=== PATIENT | male | born 1960 | race Caucasian/White ===

== ENCOUNTER 2025-06-21 23:15 | Emergency (ER) | payer SELFPAY ==
[2025-06-21 23:27] VITALS: BP 185/118
--- NOTE | 2025-06-22 00:07 | ED.GENMED ---
History of Present Illness
General
Chief Complaint: Crisis Evaluation
Source: patient
Exam Limitations: none
Time Seen by Provider: 06/22/25 00:07
Nursing documentation reviewed up to this point in time: agreed with
History of Present Illness
History of Present Illness:
64 yo male w h/o HTN, HLD, GERD, NIDDM, Depression presents stating he had a disagreement with his long time girlfriend, accused her of having affair, 'everyone thinks I'm lying,' 'I threatened her I would leave her,' 'I went to work and thought I
was going to be fired,' 'my girlfriend called my son and he doesn't believe me, he thinks I'm delusional.' 'Weird things are happening at work' 'my girlfriend doesn't want anyone to know we've been having a rn long term care affair...' Rambling on and on
jumping from subject to subject. Denies SI or HI. States his boss told him 'your spiralling'
He mentions an officer was at the scene and his son drove him here.
He denies any medical symptoms.
He is reporting concerns of being perceived as having a psychotic break.
Past History
Past History
ED Past Medical History: GERD, HTN, Hypercholesterolemia, NIDDM and Psychiatric (depression)
Social History
Tobacco: Former smoker
Alcohol: None
Employment: Employed
Review of Systems
Review of Systems
Allergies reviewed?: Yes
All Other Systems: ROS reviewed and negative except as documented in HPI and ROS
Constitutional: Denies fever
Respiratory: Denies trouble breathing
Cardiac: Denies chest pain
ABD/GI: Denies abdominal pain, nausea, vomiting or diarrhea
: Denies difficulty voiding
Musculoskeletal: Reports no symptoms
Skin: Reports no symptoms
Neurological: Reports no symptoms
Psychiatric: Reports depression and other (Paranoia); Denies suicidal
Phy Exam
Physical Exam
Physical Exam:
GENERAL: No acute distress. A&Ox3.
CONSTITUTIONAL: Afebrile.
EYES: clear, conjunctivae normal
ENMT: moist mucus membranes, Pharynx nl
RESPIRATORY: Regular respirations, nonlabored, lungs clear.
CARDIOVASCULAR: Regular rate and rhythm, no murmurs, no rubs.
GI: Soft, nontender, normal BS
MUSCULOSKELETAL: Moves with ease. Well perfused.
SKIN: Warm, dry, pink
PSYCH: Normal mood and affect. Well kept, interactive and appropriate
NEUROLOGIC: Awake, alert and oriented. No focal neurological deficits
Course
Orders/Labs/Results
Orders:
Orders
06/22/25 00:04
Crisis Consult Urgent
Reason for Consult: depression
Vital Signs
Initial and Last Documented VS:
Initial Vital Signs
Temp Pulse Resp BP Pulse Ox
98.9 F 108 20 185/118 98
06/21/25 23:27 06/21/25 23:27 06/21/25 23:27 06/21/25 23:27 06/21/25 23:27
Last Documented Vital Signs
Temp Pulse Resp BP Pulse Ox
98.9 F 94 18 155/76 96
06/21/25 23:27 06/22/25 02:34 06/22/25 02:34 06/22/25 02:34 06/22/25 02:34
MDM/Problems Addressed
MDM/Problems Addressed:
64 yo male w h/o HTN, HLD, GERD, NIDDM, Depression presents stating he had a disagreement with his long time girlfriend, accused her of having affair, 'everyone thinks I'm lying,' 'I threatened her I would leave her,' 'I went to work and thought I
was going to be fired,' 'my girlfriend called my son and he doesn't believe me, he thinks I'm delusional.' 'Weird things are happening at work' 'my girlfriend doesn't want anyone to know we've been having a long-term affair...' Rambling on and on
jumping from subject to subject. Denies SI or HI. States his boss told him 'your spiralling'
He mentions an officer was at the scene and his son drove him here.
He denies any medical symptoms.
He is reporting concerns of being perceived as having a psychotic break.
Crisis consulted.
Ata from Crisis in, states pt is manic but low risk. He is not suicidal or homicidal, no history of attempts at suicide or self-harm. He has a therapy appointment later today and a psychiatrist appointment Tuesday.
2:30 a.m.
Pt remains calm, pleasant
He is comfortable calling his son to come pick him up.
*Pulse Oximetry
SaO2: 98
Oxygen Mode of Delivery: Room air
Patient hypoxic: not evaluated
*Critical Care Note
Total Time (30-74mins, 75-104mins- exclusive of procedures): Not Applicable
ED Attending Note
-
Portions of this chart may have been created with voice recognition software.� Occasional wrong word or��sound alike� substitutions may have occurred due to the inherent limitations of voice recognition software.
Discharge Plan
Departure
Patient Disposition: Home (Routine Discharge)
Date of Disposition: 06/22/25
Time of Disposition: 02:29
Patient with high blood pressure during this ER visit?: No
Condition: Good
Discharge Problem:
Depression, Anxiety
Instructions: Depression, Adult (DC), Anxiety, Adult (DC)
Referrals:
Robbi Sarah MD [Family Provider, Internal Medicine]
Activity Restrictions/Additional Instructions:
As we discussed, keep your appointment later today with your therapist.
If you feel you need medication, discuss it with your Psychiatrist on Tuesday at your appointment
Interventions
Interventions:
*Risk Screen - Suicide Last Done: 06/21/25 23:27
*General Assessment Last Done: 06/21/25 23:27
*Neglect/Abuse Screening Last Done: 06/21/25 23:27
*ED- Fall Risk Assessment Last Done: 06/21/25 23:27
*ED COVID-19 Vaccine History Last Done: 06/21/25 23:27
*ED Influenza Vaccine History Last Done: 06/21/25 23:27
*Nursing Disposition Last Done: 06/22/25 02:34
ED-Psychological Assessment Last Done: 06/22/25 00:52
Discharge Date and Time
Discharge Date/Time: 06/22/25 02:34
Print Language: MALIAN
[2025-06-22 00:37] VITALS: BP 179/82
[2025-06-22 01:00] VITALS: BP 155/78
[2025-06-22 02:34] VITALS: BP 155/76
== END 2025-06-22 02:34 | disposition home or self-care (01) ==
LOC: EMR 23:15
PROVIDERS: EMERGENCY PHYSICIAN Emergency Medicine; FAMILY PHYSICIAN Internal Medicine Rheumatology
DX: F41.8 Other specified anxiety disorders (principal); I10 Essential (primary) hypertension; E78.00 Pure hypercholesterolemia, unspecified; K21.9 Gastro-esophageal reflux disease without esophagitis; E11.9 Type 2 diabetes mellitus without complications; Z87.891 Personal history of nicotine dependence
CPT/HCPCS: 99282

== ENCOUNTER 2025-06-26 20:11 | Emergency (ER) | payer SELFPAY ==
[2025-06-26 20:16] VITALS: BP 191/118
[2025-06-26 21:16] LABS: Glucose - Point of Care 175 mg/dl (70-99)
--- NOTE | 2025-06-26 22:33 | ED.GENMED ---
History of Present Illness
<Cande Devine DO - Last Filed: 06/26/25 22:38>
General
Chief Complaint: Crisis Evaluation
Time Seen by Provider: 06/26/25 20:19
History of Present Illness
History of Present Illness:
64-year-old male with history of hypertension and depression presenting to the emergency department for suicidal ideations. Patient arrives under 302. Patient was placed under 302 by family, had noted suicidal ideations prior to arrival. Police
had been called and patient was subsequently brought to the emergency department. Patient seen in the hospital on 06/22 for increased anxiety. Does note that he is on multiple psych medications, however denies formal diagnosis of bipolar disorder
or schizophrenia. Does note underlying history of depression and anxiety. Denies drug or alcohol abuse. Denies any present chest pain, difficulty breathing, abdominal pain. Upon arrival to the hospital, denies active suicidal ideation.
Past History
<Cande Devine DO - Last Filed: 06/26/25 22:38>
Past History
ED Past Medical History: GERD, HTN, Hypercholesterolemia, NIDDM and Psychiatric (depression)
Social History
Tobacco: Former smoker
Alcohol: None
Employment: Employed
Phy Exam
<Cande Devine DO - Last Filed: 06/26/25 22:38>
Physical Exam
Physical Exam:
General: Well-appearing, no clinical signs of dehydration, nontoxic and in no acute distress
HEENT: protecting airway
Neck: appears supple
CV: Normal heart rate
Resp: No accessory muscle use, no increased work of breathing
Abd: No distention
Extremities: No deformities, no swelling
Neuro: alert, no focal neurologic deficit
: deferred
Rectal: deferred
Psych: Tearful
Skin: Intact
Course
<Cande Devine DO - Last Filed: 06/26/25 22:38>
Orders/Labs/Results
Orders:
Orders
06/26/25 20:27
Urine Drug Abuse Screen Urgent
Date Specimen was Collected: 06/26/25
Time Specimen was Collected: 20:26
06/26/25 20:35
1:1 Observation - Suicide/ Violent Behavior As Directed
Crisis Consult Urgent
Reason for Consult: [place] [employer] for 302
06/27/25 00:14
Gabapentin [Neurontin] 100 mg PO NOW STA
Losartan [Cozaar] 100 mg PO NOW STA
Trazodone [Desyrel] 100 mg PO NOW STA
06/27/25 01:00
Rosuvastatin Calcium [Crestor] 40 mg PO QPM
06/27/25 08:00
Aripiprazole [Abilify] 10 mg PO DAILY
Dapagliflozin [Farxiga] 10 mg PO DAILY
Losartan [Cozaar] 100 mg PO DAILY
METFORMIN HCl [Glucophage] 1,000 mg PO BID@0800,1700
Meloxicam [Mobic] 15 mg PO DAILY
06/27/25 22:00
Gabapentin [Neurontin] 100 mg PO HS
Trazodone [Desyrel] 100 mg PO HS
Abnormal Lab Results
06/26/25 06/26/25
20:27 21:15
U Marijuana (THC) Screen Positive H
(Negative)
POC Glucose 175 H mg/dl
(70-99)
Vital Signs
Initial and Last Documented VS:
Initial Vital Signs
Temp Pulse Resp BP Pulse Ox
97.9 F 111 22 191/118 99
06/26/25 20:16 06/26/25 20:16 06/26/25 20:16 06/26/25 20:16 06/26/25 20:16
Last Documented Vital Signs
Temp Pulse Resp BP Pulse Ox
97.9 F 98 8 173/76 98
06/26/25 20:16 06/26/25 22:50 06/26/25 22:50 06/26/25 22:50 06/26/25 22:50
<Maribell Christopher DO - Last Filed: 06/27/25 00:29>
Orders/Labs/Results
Orders:
Orders
06/26/25 20:27
Urine Drug Abuse Screen Urgent
Date Specimen was Collected: 06/26/25
Time Specimen was Collected: 20:26
06/26/25 20:35
1:1 Observation - Suicide/ Violent Behavior As Directed
Crisis Consult Urgent
Reason for Consult: [place] [employer] for 302
06/27/25 00:14
Gabapentin [Neurontin] 100 mg PO NOW STA
Losartan [Cozaar] 100 mg PO NOW STA
Trazodone [Desyrel] 100 mg PO NOW STA
06/27/25 01:00
Rosuvastatin Calcium [Crestor] 40 mg PO QPM
06/27/25 08:00
Aripiprazole [Abilify] 10 mg PO DAILY
Dapagliflozin [Farxiga] 10 mg PO DAILY
Losartan [Cozaar] 100 mg PO DAILY
METFORMIN HCl [Glucophage] 1,000 mg PO BID@0800,1700
Meloxicam [Mobic] 15 mg PO DAILY
06/27/25 22:00
Gabapentin [Neurontin] 100 mg PO HS
Trazodone [Desyrel] 100 mg PO HS
Abnormal Lab Results
06/26/25 06/26/25
20:27 21:15
U Marijuana (THC) Screen Positive H
(Negative)
POC Glucose 175 H mg/dl
(70-99)
Vital Signs
Initial and Last Documented VS:
Initial Vital Signs
Temp Pulse Resp BP Pulse Ox
97.9 F 111 22 191/118 99
06/26/25 20:16 06/26/25 20:16 06/26/25 20:16 06/26/25 20:16 06/26/25 20:16
Last Documented Vital Signs
Temp Pulse Resp BP Pulse Ox
97.9 F 98 8 173/76 98
06/26/25 20:16 06/26/25 22:50 06/26/25 22:50 06/26/25 22:50 06/26/25 22:50
<Cande Devine DO - Last Filed: 06/26/25 22:38>
MDM/Problems Addressed
MDM/Problems Addressed:
64-year-old male with underlying history of anxiety and depression presenting to the emergency department for concern of SI, under 302. Vital signs on arrival significant for high blood pressure, however patient is agitated and upset upon arrival.
On exam, once verbally de-escalated, patient is calm and cooperative with exam. Currently denies SI or HI, however 302 notes that patient was reporting that he wanted to 'kill himself 'on multiple occasions. He currently denies acute medical
complaint such as chest pain or difficulty breathing. Will recheck patient's blood pressure, however at this time without concern for hypertensive urgency or emergency. Will consult with crisis team and telepsych for further management from a
psychiatric standpoint.
22:35 - Patient's 302 upheld by telepsych. Plan for inpatient therapy. Will continue to monitor. Patient aware
<Cande Devine DO - Last Filed: 06/26/25 22:38>
*Pulse Oximetry
SaO2: 99
Oxygen Mode of Delivery: Room air
Patient hypoxic: no
*Critical Care Note
Total Time (30-74mins, 75-104mins- exclusive of procedures): Not Applicable
<Maribell Christopher DO - Last Filed: 06/27/25 00:29>
Update Note
Update Note:
00:30
Patient remains briefly tearful but easily communicative.
Admits to suicidal thoughts and states 'my daughter saved me tonight'
He has history of hypertension, [id number] diabetes, hyperlipidemia, osteoarthritis, depression, restless leg syndrome, peripheral neuropathy.
Blood pressure improved but systolic remains elevated at 170.
Patient chronically maintained on losartan 100 mg and admits that he ran out of this a few days ago. There are several prescriptions at the pharmacy waiting for pickup.
Along with losartan 100 mg daily he is also maintained on metformin 1000 mg twice daily, farxiga 10 mg daily, Abilify 5 mg daily�recently increased to 10 mg daily.
He is also maintained on gabapentin 100 mg at bedtime, meloxicam 15 mg daily, rosuvastatin 40 mg daily, trazodone 100 mg at bedtime. Patient also states he takes Effexor XR 150 mg daily however upon review of records patient has not been taking
this and last prescription filled 1 year ago.
He does follow with PCP and underwent routine blood work May 16 of this year showing hemoglobin A1c of 6.2, improved from 6.6 November of this year.
Microalbumin/creatinine ratio minimally elevated at 58.
Complete metabolic panel unremarkable save for mildly elevated glucose of 137. Normal renal function. Normal LFTs. CBC within normal limits.
Excellent lipid panel with LDL of 67, at goal of less than 80. Cholesterol 142. Triglycerides 56. HDL 63.
Of note, normal PSA screen of 0.1 and normal TSH of 1.860.
Will give his usual dose of trazodone 100 mg tonight as well as a dose of losartan 100 mg tonight and gabapentin 100 mg.
All other medications ordered for scheduled dosing.
With unremarkable laboratory studies 6 weeks ago, at this point no indication to repeat.
ED Attending Note
<Cande Devine, DO - Last Filed: 06/26/25 22:38>
-
Portions of this chart may have been created with voice recognition software.� Occasional wrong word or��sound alike� substitutions may have occurred due to the inherent limitations of voice recognition software.
Discharge Plan
Departure
Patient Disposition: Psych Facility
Date of Disposition: 06/26/25
Time of Disposition: 22:32
Patient with high blood pressure during this ER visit?: No
Discharge Problem:
Suicidal ideations
Prescriptions:
No Action
trazodone 150 mg Tablet
150 mg PO DAILY
metformin 1,000 mg Tablet
1,000 mg PO DAILY
aripiprazole [Abilify] 10 mg Tablet
10 mg PO DAILY
aripiprazole [Abilify] 10 mg Tablet
10 mg PO
Mobic
losartan
Referrals:
UNKNOWN - PT DOES,NOT KNOW [Family Provider]
Interventions
Interventions:
*Risk Screen - Suicide Last Done: 06/26/25 20:22
*General Assessment Last Done: 06/26/25 20:26
ED-Psychological Assessment Last Done: 06/26/25 20:24
Discharge Date and Time
Print Language: ANGOLAN
[2025-06-26 22:40] VITALS: BP 173/76
[2025-06-26 22:50] VITALS: BP 173/76
[2025-06-27 00:29] VITALS: BP 148/76; BMI 26.0
[2025-06-27] MEDS: COZAAR 100 MG PO (01:06)
[2025-06-27] MEDS: DESYREL 100 MG PO (01:07)
[2025-06-27] MEDS: NEURONTIN 100 MG PO (01:07)
[2025-06-27] MEDS: CRESTOR 40 MG PO (01:35)
== END 2025-06-27 03:49 ==
LOC: EMR 20:11
PROVIDERS: EMERGENCY PHYSICIAN Student in an Organized Health Care Education/Training Program
DX: R45.851 Suicidal ideations (principal); F32.A Depression, unspecified; F41.9 Anxiety disorder, unspecified; E11.42 Type 2 diabetes mellitus with diabetic polyneuropathy; E11.65 Type 2 diabetes mellitus with hyperglycemia; E78.00 Pure hypercholesterolemia, unspecified; I10 Essential (primary) hypertension; G25.81 Restless legs syndrome; Z79.84 Long term (current) use of oral hypoglycemic drugs; Z87.891 Personal history of nicotine dependence; Z88.8 Allergy status to other drugs, medicaments and biological substances
CPT/HCPCS: 99285; 80306; 82962